=== PATIENT | female | born 1970 | race Caucasian/White ===

== ENCOUNTER 2017-07-28 19:40 | Emergency (ER) | payer BC, OTHER ==
[2017-07-28 19:40] VITALS: BMI 24.7
[2017-07-28 19:45] VITALS: BP 119/80; PULSE 95; RESP 18; TEMP 98; O2SAT 98
--- NOTE | 2017-07-28 20:07 | ED PDOC ---
Arrival/HPI - General Chief Complaint: Cough, Cold, Congestion Time Seen by Provider: 07/28/17 19:40 Historian: Patient - History of Present Illness Narrative History of Present Illness (Text): 07/28/17 20:04 46yo female with PMHx of Diabetes who present with 6days history of nonproductive cough, sore throat, and nasal congestion. States she started having chest and abdominal pain with cough x days. She was seen by her PMD for same symptom and was given Zithromax yesterday. States she have only taken a dose of the antibiotics. Denies fever, chills, nausea, vomiting, diarrhea, constipation, sick contact, travel, any other complaint. Past Medical History - Provider Review Nursing Documentation Reviewed: Yes - Infectious Disease Hx of Infectious Diseases: None - Cardiac Hx Cardiac Disorders: No Hx Atrial Fibrillation: No - Pulmonary Hx Respiratory Disorders: No - Neurological Hx Neurological Disorder: No - HEENT Hx HEENT Disorder: No - Renal Hx Renal Disorder: No - Endocrine/Metabolic Hx Endocrine Disorders: Yes Hx Diabetes Mellitus Type 2: Yes - Hematological/Oncological Hx Blood Disorders: No - Integumentary Hx Dermatological Disorder: No - Musculoskeletal/Rheumatological Hx Musculoskeletal Disorders: No - Gastrointestinal Hx Gastrointestinal Disorders: No - Genitourinary/Gynecological Hx Genitourinary Disorders: No - Psychiatric Hx Psychophysiologic Disorder: No Hx Substance Use: No - Surgical History Hx Section: Yes - Anesthesia Hx Anesthesia: Yes Hx Anesthesia Reactions: No Family/Social History - Physician Review Nursing Documentation Reviewed: Yes Family/Social History: Unknown Family HX Smoking Status: Never Smoked Hx Alcohol Use: No Hx Substance Use: No Allergies/Home Meds Allergies/Adverse Reactions: Allergies amoxicillin Allergy (Verified 07/28/17 19:42) ITCHING Penicillins Allergy (Verified 07/28/17 19:42) ITCHING Home Medications: Home Meds Medication Instructions Recorded Confirmed MetFORMIN [glucoPHAGE] 1,000 mg PO BID 07/28/17 07/28/17 Review of Systems - Physician Review All systems were reviewed & negative as marked: Yes - Review of Systems Constitutional: Normal Eyes: Normal ENT: Sore Throat, Sinus Congestion Respiratory: Cough. absent: SOB, Sputum, Wheezing Cardiovascular: Normal Gastrointestinal: Normal Genitourinary Female: Normal Musculoskeletal: Normal Skin: Normal Neurological: Normal Endocrine: Normal Hemo/Lymphatic: Normal Psychiatric: Normal Physical Exam Vital Signs Reviewed: Yes Vital Signs Temp Pulse Resp BP Pulse Ox 07/28/17 19:42 98.0 F 95 H 18 119/80 98 Temperature: Afebrile Blood Pressure: Normal Pulse: Regular Respiratory Rate: Normal Appearance: Positive for: Well-Appearing, Non-Toxic, Comfortable Pain Distress: None Mental Status: Positive for: Alert and Oriented X 3 - Systems Exam Head: Present: Atraumatic, Normocephalic Pupils: Present: PERRL Extroacular Muscles: Present: EOMI Conjunctiva: Present: Normal Mouth: Present: Moist Mucous Membranes Pharnyx: Present: ERYTHEMA. No: EXUDATE, TONSILS ENLARGED, Peritonsilar Swelling, Uvular Deviation, Muffled/Hoarse Voice, Strider, Soft Palate/Uvular Edema Nose (Internal): Present: Boggy (Boggy b/l) Neck: Present: Normal Range of Motion Respiratory/Chest: Present: Clear to Auscultation, Good Air Exchange. No: Respiratory Distress, Accessory Muscle Use, Wheezes, Decreased Breath Sounds, Rales, Retracting, Rhonchi, Tachypneic Cardiovascular: Present: Regular Rate and Rhythm, Normal S1, S2. No: Murmurs Abdomen: Present: Normal Bowel Sounds. No: Tenderness, Distention, Peritoneal Signs, Rebound, Guarding, McBurney's Point Tender, Rovsing's Sign Present Back: Present: Normal Inspection Upper Extremity: Present: Normal Inspection. No: Cyanosis, Edema Lower Extremity: Present: Normal Inspection. No: Edema Neurological: Present: GCS=15, CN II-XII Intact, Speech Normal Skin: Present: Warm, Dry, Normal Color. No: Rashes Psychiatric: Present: Alert, Oriented x 3, Normal Insight, Normal Concentration Medical Decision Making ED Course and Treatment: 07/28/17 20:36 Pt presented for stated history. she was afebrile and hemodynamically stable in ED. CXR NAD CXR also reviewed by Dr. Freeman Result was DW the patient. She requested blood work for her symptoms and it was explained to the patient that she have URI, which takes few days. She was advised to take her antibiotics as was directed by her PMD, drink plenty of fluid and rest. Advised that her symptoms should be treated symptomatically and if symptoms persist or worsens f/u with her PMD or return to the ED. Rx of Promethazine with codeine, Albuterol inhaler and Ibuprofen was given to the pt. However, according to the RN, pt declined these prescription and refused the medication that was ordered in ED. - RAD Interpretation Radiology Orders: 07/28/17 19:53 CHEST TWO VIEWS (PA/LAT) [RAD] Stat - Medication Orders Current Medication Orders: Discontinued Medications Ibuprofen (Motrin Tab) 600 mg PO STAT STA Stop: 07/28/17 20:20 Last Admin: 07/28/17 20:33 Dose: Not Given Non-Admin Reason: Patient Refused MAR Pain/Vitals Document 07/28/17 20:33 YP (Rec: 07/28/17 20:33 YP [id number]) Pain Reassessment Is This A Pain ReAssessment? Yes Sleep Is patient sleeping during reassessment? No Promethazine HCl (Phenergan Syrup) 6.25 mg PO ONCE STA Stop: 07/28/17 20:20 Last Admin: 07/28/17 20:33 Dose: Not Given Non-Admin Reason: Patient Refused Disposition/Present on Arrival - Present on Arrival Any Indicators Present on Arrival: No History of DVT/PE: No History of Uncontrolled Diabetes: No Urinary Catheter: No History of Decub. Ulcer: No History Surgical Site Infection Following: None - Disposition Have Diagnosis and Disposition been Completed?: Yes Diagnosis: URI (upper respiratory infection) Disposition: HOME/ ROUTINE Disposition Time: 20:30 Patient Plan: Discharge Condition: STABLE Discharge Instructions (ExitCare): Upper Respiratory Infection (ED) Additional Instructions: Follow up with your doctor Drink plenty of fluid and rest Return to ED fo any new or worsening symptoms Prescriptions: Albuterol HFA [Ventolin HFA 90 mcg/actuation (8 g)] 2 puff IH [id number] #1 puff Ibuprofen [Motrin Tab] 600 mg PO Q6 #20 tab Promethazine/Codeine [Phenergan/Codeine Oral Syrup] 118 ml PO Q6 #5 ml Referrals: Selam Duque MD [Primary Care Provider] - Follow up with primary Forms: [email or web address] (Welsh)
[2017-07-28] MEDS ORDERED: Promethazine 6.25 MG/5 ML CUP PO STA (20:19)
--- NOTE | 2017-07-29 08:49 | RAD ---
HISTORY: cough COMPARISON: No prior. TECHNIQUE: Chest PA and lateral FINDINGS: LUNGS: No active pulmonary disease. PLEURA: No significant pleural effusion identified. No pneumothorax apparent. CARDIOVASCULAR: Normal. OSSEOUS STRUCTURES: No significant abnormalities. VISUALIZED UPPER ABDOMEN: Normal. OTHER FINDINGS: None. IMPRESSION: No active disease.
== END 2017-07-28 20:38 | disposition home or self-care (01) ==
LOC: ED 19:40
DX: J06.9 Acute upper respiratory infection, unspecified (principal)

== ENCOUNTER 2018-10-09 07:20 | Observation (INO) | payer BC ==
[2018-10-09] MEDS ORDERED: Sodium Chloride 0.9% 1,000 ML IV STA (07:55)
--- NOTE | 2018-10-09 08:02 | ED PDOC ---
Arrival/HPI - General Time Seen by Provider: 10/09/18 07:46 Historian: Patient - History of Present Illness Narrative History of Present Illness (Text): 10/09/18 07:57 47 year old f with a pmh of a hysterectomy(1 yr ago) and diabetes presents to the emergency department complaining of abd pain w/ Nausea, vomiting, diarrhea and dizziness x3days. Patient recalls that the abd pain with nausea, vomiting, diarrhea came after she ate at a restaurant. She mentioned that this morning she called Dr. Duque (PCP) who advised to present to the emergency department. Patient denies any fevers, chills, headache, chest pain, shortness of breath, dyspnea on exertion, cough, back pain, neck pain, or any other complaint. Time/Duration: < week Symptom Onset: Gradual Symptom Course: Unchanged Activities at Onset: Light Context: Home Associated Symptoms (Text): 10/09/18 08:31 Hysterectomy 1 year ago. Past Medical History - Provider Review Nursing Documentation Reviewed: Yes - Infectious Disease Hx of Infectious Diseases: None - Cardiac Hx Cardiac Disorders: No Hx Atrial Fibrillation: No - Pulmonary Hx Respiratory Disorders: No - Neurological Hx Neurological Disorder: No - HEENT Hx HEENT Disorder: No - Renal Hx Renal Disorder: No - Endocrine/Metabolic Hx Endocrine Disorders: Yes Hx Diabetes Mellitus Type 2: Yes - Hematological/Oncological Hx Blood Disorders: No - Integumentary Hx Dermatological Disorder: No - Musculoskeletal/Rheumatological Hx Musculoskeletal Disorders: No - Gastrointestinal Hx Gastrointestinal Disorders: No - Genitourinary/Gynecological Hx Genitourinary Disorders: No - Psychiatric Hx Psychophysiologic Disorder: No Hx Substance Use: No - Surgical History Hx Section: Yes - Anesthesia Hx Anesthesia: Yes Hx Anesthesia Reactions: No Family/Social History - Physician Review Nursing Documentation Reviewed: Yes Family/Social History: No Known Family HX Smoking Status: Never Smoked Hx Alcohol Use: No Hx Substance Use: No Allergies/Home Meds Allergies/Adverse Reactions: Allergies amoxicillin Allergy (Verified 07/28/17 19:42) ITCHING Penicillins Allergy (Verified 07/28/17 19:42) ITCHING Home Medications: Home Meds Medication Instructions Recorded Confirmed MetFORMIN [glucoPHAGE] 1,000 mg PO BID 07/28/17 07/28/17 Review of Systems - Physician Review All systems were reviewed & negative as marked: Yes - Review of Systems Constitutional: absent: Fatigue, Fevers ENT: absent: Rhinorrhea Respiratory: absent: SOB, Cough, Wheezing Cardiovascular: absent: Chest Pain, Palpitations, Edema, Syncope Gastrointestinal: Abdominal Pain, Diarrhea, Nausea, Vomiting. absent: Constipation Genitourinary Female: absent: Dysuria, Frequency, Hematuria Musculoskeletal: absent: Arthralgias, Back Pain, Myalgias Neurological: Dizziness. absent: Headache, Focal Weakness, Gait Changes Physical Exam Vital Signs Reviewed: Yes Temperature: Afebrile Blood Pressure: Normal Pulse: Regular Respiratory Rate: Normal Appearance: Positive for: Well-Appearing, Non-Toxic, Comfortable Pain Distress: None Mental Status: Positive for: Alert and Oriented X 3 - Systems Exam Head: Present: Atraumatic, Normocephalic Pupils: Present: PERRL Extroacular Muscles: Present: EOMI Conjunctiva: Present: Normal Mouth: Present: Moist Mucous Membranes Pharnyx: No: ERYTHEMA, EXUDATE, TONSILS ENLARGED Neck: Present: Normal Range of Motion Respiratory/Chest: Present: Clear to Auscultation, Good Air Exchange. No: Respiratory Distress, Accessory Muscle Use Cardiovascular: Present: Regular Rate and Rhythm, Normal S1, S2. No: Murmurs Abdomen: No: Tenderness, Distention, Peritoneal Signs, Rebound, Guarding Back: Present: Normal Inspection Upper Extremity: Present: Normal Inspection. No: Cyanosis, Edema Lower Extremity: Present: Normal Inspection. No: Edema Neurological: Present: GCS=15, CN II-XII Intact, Speech Normal, Motor Func G rossly Intact Skin: Present: Warm, Dry, Normal Color. No: Rashes Psychiatric: Present: Alert, Oriented x 3, Normal Insight, Normal Concentration Medical Decision Making ED Course and Treatment: 10/09/18 08:04 Impression: 47 year old f presents to the emergency department complaining of abd pain w/ Nausea, vomiting, diarrhea and dizziness x3days Plan: --Labs --Protonix inj --Saline IV --Zofran inj -- Reassess and disposition Prior Visits: Notes and results from previous visits were reviewed. Progress Notes: 10/09/18 09:28 Markedly elevated lipase. Ultrasound has been ordered. 10/09/18 11:16 Symptoms are markedly improved. 10/09/18 12:00 Seen and examined by , who requests consultation with GI Dr Maza, and will place on regular observation. - RAD Interpretation Radiology Orders: Ultrasound of the abdomen is read by the radiologist shows a fatty liver. Otherwise unremarkable. Stamp Presser: Radiologist - Medication Orders Current Medication Orders: Sodium Chloride (Sodium Chloride 0.9%) 1,000 mls @ 1,000 mls/hr IV .Q1H STA Stop: 10/09/18 08:54 Ondansetron HCl (Zofran Inj) 4 mg IVP STAT STA Stop: 10/09/18 07:56 Pantoprazole Sodium (Protonix Inj) 40 mg IVP STAT STA Stop: 10/09/18 07:56 - PA / MIDDLEWARE CONSULTANT / Resident Statement MD/DO has reviewed & agrees with the documentation as recorded. - Scribe Statement The provider has reviewed the documentation as recorded by the Contrerasibangela Green All medical record entries made by the Contrerasibangela were at my direction and personally dictated by me. I have reviewed the chart and agree that the record accurately reflects my personal performance of the history, physical exam, medical decision making, and the department course for this patient. I have also personally directed, reviewed, and agree with the discharge instructions and disposition. Disposition/Present on Arrival - Present on Arrival Any Indicators Present on Arrival: No History of DVT/PE: No History of Uncontrolled Diabetes: No Urinary Catheter: No History of Decub. Ulcer: No History Surgical Site Infection Following: None - Disposition Have Diagnosis and Disposition been Completed?: Yes Diagnosis: Hyperglycemia, Pancreatitis, Nausea vomiting and diarrhea, Abdominal pain Disposition: HOSPITALIZED Disposition Time: 12:02 Patient Plan: Observation Condition: IMPROVED Referrals: Selam Duque MD [Primary Care Provider] - Follow up with primary
[2018-10-09 09:08] LABS: BASO # 0.02 K/mm3 (0.0-2.0); BASO % 0.2 % (0.0-3.0); EOS # 0.1 (0.0-0.7); EOS % 0.6 % (1.5-5.0); HEMOGLOBIN 13.8 g/dL (12.0-16.0); LYMPH # 1.7 (1.2-3.4); LYMPH % 16.5 % (22.0-35.0); MEAN CELL VOLUME 78.5 fl (80.0-105.0); MEAN CORPUSCULAR HGB CONC 33.1 g/dl (31.0-37.0); MEAN PLATELET VOLUME 10.3 fl (7.0-11.0); MONO # 0.6 (0.1-0.6); MONO % 6.1 % (1.0-6.0); RBC 5.31 10^6/uL (3.5-6.1); RED CELL DISTRIBUTION WIDTH 12.9 % (11.5-14.5); WHITE BLOOD COUNT 10.2 10^3/uL (4.5-11.0)
[2018-10-09 09:27] LABS: ALB/GLOB RATIO 1.3 (1.1-1.8); ALBUMIN 4.1 g/dL (3.0-4.8); ALT/SGPT 13 U/L (7-56); AST/SGOT 24 U/L (14-36); BLOOD UREA NITROGEN 13 mg/dL (7-21); CALCIUM 9.7 mg/dL (8.4-10.5); GFR NON-AFRICAN AMERICAN > 60; LIPASE 667 U/L (23-300)
--- NOTE | 2018-10-09 11:33 | US ---
Date of service: 10/09/2018 HISTORY: elevated lipase COMPARISON: None. TECHNIQUE: Sonographic evaluation of the abdomen. FINDINGS: LIVER: Liver is enlarged measuring 20 cm in CC dimension.. Liver exhibits echogenic parenchyma likely due to fatty infiltration however other infiltrative hepatocellular disease process not excluded. No mass. No intrahepatic bile duct dilatation. GALLBLADDER: Unremarkable. No gallstones. COMMON BILE DUCT: Measures 6.0 mm. No stones. No dilatation. PANCREAS: Unremarkable as visualized. No mass. No ductal dilatation. RIGHT KIDNEY: Measures 11.8 x 4.9 x 5.0cm. Normal echogenicity. No calculus, mass, or hydronephrosis. LEFT KIDNEY: Measures 11.7 x 5.4 x 5.6cm. Normal echogenicity. No calculus, mass, or hydronephrosis. SPLEEN: Normal in size and contour. No mass. AORTA: No aneurysmal dilatation. IVC: Unremarkable. OTHER FINDINGS: None. IMPRESSION: Hepatomegaly with suspected fatty infiltration however other infiltrative hepatocellular disease process not excluded.
--- NOTE | 2018-10-09 13:56 | CP.PCM.CON ---
<Rajesh Krishnamurthy - Last Filed: 10/09/18 17:06> History of Present Illness - History of Present Illness History of Present Illness: Rajesh Krishnamurthy PGY2 GI Consult Note for Dr. Maza Reason for consult: pancreatitis Ms. Gomez is a 47 year old female with a PMH of DM2 (diagnosed at young age, non-insulin dependent) and GERD who presents with nausea/vomiting for several days as well as diarrhea x2 days. GI consulted for pancreatitis. The patient states that these symptoms have been occurring for more than 2 years now, and are intermittent in nature. She denies any sick contacts, fevers/chills, recent travel. She denies any blood loss in the vomitus or stools. She denies any weight loss, hx of cancers or prior upper/lower endoscopies. She described abdominal pain that is epigastric in nature and radiating to her neck as well as to the back. She states that her last A1C was about 9.1. 12-pt ROS was reviewed and is otherwise unremarkable. PMD: Dr. 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[employer]) FHx: DM2 and Heart conditions; no cancers (GI or otherwise) Review of Systems - Review of Systems All systems: reviewed and no additional remarkable complaints except (as per HPI) Past Patient History - Infectious Disease Hx of Infectious Diseases: None - Past Medical History & Family History Past Medical History?: Yes Past Family History: Reviewed and not pertinent - Past Social History Smoking Status: Never Smoked Alcohol: None Drugs: Denies Home Situation {Lives}: With Family - CARDIAC Hx Cardiac Disorders: No Hx Atrial Fibrillation: No - PULMONARY Hx Respiratory Disorders: No - NEUROLOGICAL Hx Neurological Disorder: No - HEENT Hx HEENT Problems: No - RENAL Hx Chronic Kidney Disease: No - ENDOCRINE/METABOLIC Hx Endocrine Disorders: Yes Hx Diabetes Mellitus Type 2: Yes - HEMATOLOGICAL/ONCOLOGICAL Hx Blood Disorders: No - INTEGUMENTARY Hx Dermatological Problems: No - MUSCULOSKELETAL/RHEUMATOLOGICAL Hx Musculoskeletal Disorders: No - GASTROINTESTINAL Hx Gastrointestinal Disorders: No - GENITOURINARY/GYNECOLOGICAL Hx Genitourinary Disorders: No - PSYCHIATRIC Hx Psychophysiologic Disorder: No Hx Substance Use: No - SURGICAL HISTORY Hx Section: Yes - ANESTHESIA Hx Anesthesia: Yes Hx Anesthesia Reactions: No Meds Allergies/Adverse Reactions: Allergies Allergy/AdvReac Type Severity Reaction Status Date / Time amoxicillin Allergy ITCHING Verified 10/09/18 16:42 Penicillins Allergy ITCHING Verified 10/09/18 16:42 - Medications Medications: Current Medications Sodium Chloride (Sodium Chloride 0.9%) 1,000 mls @ 100 mls/hr IV .Q10H MALLORY Ondansetron HCl (Zofran Inj) 4 mg IVP Q4H PRN PRN Reason: Nausea/Vomiting Pantoprazole Sodium (Protonix Ec Tab) 40 mg PO ACB MALLORY Physical Exam - Constitutional Appears: Well, Non-toxic, Toxic - Head Exam Head Exam: ATRAUMATIC, NORMAL INSPECTION, NORMOCEPHALIC - Eye Exam Eye Exam: EOMI, Normal appearance, PERRL Pupil Exam: NORMAL ACCOMODATION, PERRL - ENT Exam ENT Exam: Mucous Membranes Moist, Normal Exam - Neck Exam Neck exam: Positive for: Full Rom, Normal Inspection. Negative for: Thyromegaly - Respiratory Exam Respiratory Exam: Clear to Auscultation Bilateral, NORMAL BREATHING PATTERN - Cardiovascular Exam Cardiovascular Exam: REGULAR RHYTHM, +S1, +S2 - GI/Abdominal Exam GI & Abdominal Exam: Normal Bowel Sounds, Soft. absent: Distended, Tenderness - Extremities Exam Extremities exam: Positive for: full ROM, normal inspection. Negative for: pedal edema - Back Exam Back exam: FULL ROM, NORMAL INSPECTION - Neurological Exam Neurological exam: Alert, Normal Gait, Oriented x3, Reflexes Normal - Skin Skin Exam: Dry, Intact, Normal Color, Warm Results - Vital Signs Recent Vital Signs: Last Vital Signs Temp 98.2 F 10/09/18 08:05 Pulse 72 10/09/18 08:05 Resp 16 10/09/18 08:05 BP 134/82 10/09/18 08:05 Pulse Ox 98 10/09/18 08:05 - Labs Result Diagrams: 10/09/18 08:30 10/09/18 08:30 Labs: Laboratory Results - last 24 hr 10/09/18 10/09/18 08:30 08:30 WBC 10.2 RBC 5.31 Hgb 13.8 Hct 41.7 MCV 78.5 L MCH 26.0 MCHC 33.1 RDW 12.9 Plt Count 273 MPV 10.3 Neut % (Auto) 76.6 H Lymph % (Auto) 16.5 L [place] % (Auto) 6.1 H Eos % (Auto) 0.6 L Baso % (Auto) 0.2 Lymph # (Auto) 1.7 [place] # (Auto) 0.6 Eos # (Auto) 0.1 Baso # (Auto) 0.02 Absolute Neuts (auto) 7.78 H Sodium 137 Potassium 4.4 Chloride 103 Carbon Dioxide 19 L Anion Gap 19 BUN 13 Creatinine 0.5 L Est GFR ( Amer) > 60 Est GFR (Non-Af Amer) > 60 Random Glucose 300 H Calcium 9.7 Magnesium 1.7 Total Bilirubin 0.3 AST 24 ALT 13 Alkaline Phosphatase 102 Total Protein 7.4 Albumin 4.1 Globulin 3.2 Albumin/Globulin Ratio 1.3 Lipase 667 H Assessment & Plan - Assessment and Plan (Free Text) Assessment: 47 year old female with a PMH of DM2 (diagnosed at young age, non-insulin dependent) and GERD who presents with nausea/vomiting for several days as well as diarrhea x2 days. These symptoms seem chronic in nature but could be acutely exacerbated due to an acute event. 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 Chronic symptoms may indicate an underlying inflammatory or functional etiology. Pancreatitis is less likely as etiology given mild elevation of Lipase and mild symptoms; elevation may actually be reactive or due to medication (Januvia). Plan: - NPO - will consent patient for upper endoscopy to further evaluate underlying pathology - will check celiac panel - will check A1c and TSH - will recheck lipase tomorrow AM - will check iron panel and anemia w/u - if symptoms persist, would recommend pancreatic protocol CT - hold januvia at this time - further recs per Dr. Maza Case was reviewed and discussed with attending, Dr. Maza <Leeanna Maza V - Last Filed: 10/09/18 17:51> Meds - Medications Medications: Current Medications Hydromorphone HCl (Dilaudid) 0.5 mg IVP Q4H PRN PRN Reason: Pain, Mild (1-3) Sodium Chloride (Sodium Chloride 0.9%) 1,000 mls @ 100 mls/hr IV .Q10H MALLORY Insulin Human Regular (Humulin R Low) 0 units SC ACHS MALLORY; Protocol Ondansetron HCl (Zofran Inj) 4 mg IVP Q6 PRN PRN Reason: Nausea/Vomiting Pantoprazole Sodium (Protonix Inj) 40 mg IVP DAILY MALLORY Last Admin: 10/09/18 16:11 Dose: 40 mg Results - Vital Signs Recent Vital Signs: Last Vital Signs Temp 98.2 F 10/09/18 17:11 Pulse 76 10/09/18 17:11 Resp 14 10/09/18 17:11 BP 134/72 10/09/18 17:11 Pulse Ox 99 10/09/18 17:11 - Labs Result Diagrams: 10/09/18 08:30 10/09/18 08:30 Labs: Laboratory Results - last 24 hr 10/09/18 10/09/18 10/09/18 08:30 08:30 13:52 WBC 10.2 RBC 5.31 Hgb 13.8 Hct 41.7 MCV 78.5 L MCH 26.0 MCHC 33.1 RDW 12.9 Plt Count 273 MPV 10.3 Neut % (Auto) 76.6 H Lymph % (Auto) 16.5 L [place] % (Auto) 6.1 H Eos % (Auto) 0.6 L Baso % (Auto) 0.2 Lymph # (Auto) 1.7 [place] # (Auto) 0.6 Eos # (Auto) 0.1 Baso # (Auto) 0.02 Absolute Neuts (auto) 7.78 H Sodium 137 Potassium 4.4 Chloride 103 Carbon Dioxide 19 L Anion Gap 19 BUN 13 Creatinine 0.5 L Est GFR ( Amer) > 60 Est GFR (Non-Af Amer) > 60 POC Glucose (mg/dL) Random Glucose 300 H Calcium 9.7 Magnesium 1.7 Iron TIBC % Saturation Total Bilirubin 0.3 AST 24 ALT 13 Alkaline Phosphatase 102 Total Protein 7.4 Albumin 4.1 Globulin 3.2 Albumin/Globulin Ratio 1.3 Triglycerides Cholesterol LDL Cholesterol Direct HDL Cholesterol Amylase Lipase 667 H TSH 3rd Generation 1.75 10/09/18 10/09/18 10/09/18 16:34 17:00 17:00 WBC RBC Hgb Hct MCV MCH MCHC RDW Plt Count MPV Neut % (Auto) Lymph % (Auto) [place] % (Auto) Eos % (Auto) Baso % (Auto) Lymph # (Auto) [place] # (Auto) Eos # (Auto) Baso # (Auto) Absolute Neuts (auto) Sodium Potassium Chloride Carbon Dioxide Anion Gap BUN Creatinine Est GFR ( Amer) Est GFR (Non-Af Amer) POC Glucose (mg/dL) 104 Random Glucose Calcium Magnesium Iron 71 TIBC 331 % Saturation 21 Total Bilirubin AST ALT Alkaline Phosphatase Total Protein Albumin Globulin Albumin/Globulin Ratio Triglycerides 163 H Cholesterol 182 LDL Cholesterol Direct 111 HDL Cholesterol 37 Amylase 87 Lipase 142 TSH 3rd Generation Attending/Attestation - Attestation I have personally seen and examined this patient.: Yes I have fully participated in the care of the patient.: Yes I have reviewed all pertinent clinical information: Yes Notes (Text): This is an addendum to the consultation report dictated by the medical transcriber. The patient was seen and evaluated earlier. She was admitted with the diarrhea vomiting and abdominal pain. She has mildly elevated lipase level. Sonogram did not reveal any gallstone. CBD normal. The differential diagnosis would include gastroenteritis, drug-induced pancreatitis should also be considered in the differential diagnosis patient is on Januvia. She has complaints of abdominal discomfort on and off for nearly a year now. She has poorly controlled diabetes. Gastroparesis should be a differential diagnosis in view of her present symptoms of nausea vomiting and postprandial abdominal bloating and his dyspeptic symptoms. Patient would benefit from upper GI endoscopy to further evaluate. Patient never had an EGD done in the past. We will also consider biopsy of the duodenum to rule out any celiac disease Patient also has a microcytic anemia. Will order for iron studies to rule out iron deficiency. If iron studies normal ,we would consider hemoglobin electrophoresis to rule out thalassemia. Discussed with the patient at length risk benefits and alternatives explained informed consent obtained for upper GI endoscopy 10/09/18 17:46
[2018-10-09] MEDS ORDERED: Sodium Chloride 0.9% 1,000 ML IV SCH ×2 (14:00→18:00)
[2018-10-09] MEDS ORDERED: HYDROmorphone 0.5 mg/0.5 ml ISec IVP PRN (15:05)
[2018-10-09] MEDS ORDERED: Propofol 10 mg/ml Inj (20 ML) ONE (17:09)
[2018-10-09] MEDS ORDERED: Lidocaine PF 2% (5 ml) Inj (For Cardiac Arrhy) ONE (17:09)
[2018-10-09 17:18] LABS: AMYLASE 87 U/L (35-125); HDL CHOLESTEROL 37 mg/dL (29-60); LIPASE 142 U/L (23-300)
[2018-10-09 17:22] LABS: IRON 71 ug/dL (45-180)
[2018-10-09 17:29] LABS: LDL CHOLESTEROL 111 mg/dL (0-129)
[2018-10-09 17:33] LABS: % IRON SATURATION 21 % (20-55); TOTAL IRON BINDING CAPACITY 331 ug/dL (265-497)
[2018-10-09 17:55] VITALS: BMI 21.6
[2018-10-09] MEDS ORDERED: Pneumococcal 23-Valent Vaccine IM ONE (17:55)
[2018-10-09] MEDS ORDERED: Influenza Vaccine 60 mcg/0.5 mL SYR (4YR UP) IM ONE (17:55)
[2018-10-09] MEDS: Insulin Reg-LOW-Coverage SC SCH ×2 (19:37→21:22)
[2018-10-10] MEDS ORDERED: Pantoprazole 40 mg EC Tab PO SCH ×2 (07:15→07:30)
[2018-10-10 07:16] LABS: HEMOGLOBIN 12.8 g/dL (12.0-16.0); MEAN CELL VOLUME 78.2 fl (80.0-105.0); MEAN CORPUSCULAR HEMOGLOBIN 26.1 pg (25.0-35.0); MEAN CORPUSCULAR HGB CONC 33.4 g/dl (31.0-37.0); MEAN PLATELET VOLUME 9.8 fl (7.0-11.0); RBC 4.9 10^6/uL (3.5-6.1); RED CELL DISTRIBUTION WIDTH 12.9 % (11.5-14.5); WHITE BLOOD COUNT 10.9 10^3/uL (4.5-11.0)
[2018-10-10 07:43] LABS: BLOOD UREA NITROGEN 10 mg/dL (7-21); CALCIUM 8.2 mg/dL (8.4-10.5); GFR NON-AFRICAN AMERICAN > 60; LIPASE 182 U/L (23-300)
--- NOTE | 2018-10-10 07:55 | CP.PCM.PN ---
<Rajesh Krishnamurthy - Last Filed: 10/10/18 11:24> Subjective - Date & Time of Evaluation Date of Evaluation: 10/10/18 Time of Evaluation: 07:21 - Subjective Subjective: Rajesh Krishnamurthy PGY2 Progress Note for Dr. Maza Patient was seen and examined at bedside. She is tolerating her diet, and has not had episodes of nausea/vomiting or diarrhea since admission. No acute overnight events noted. Objective - Vital Signs/Intake and Output Vital Signs (last 24 hours): Temp Pulse Resp BP Pulse Ox 98.2 F 71 18 106/68 99 10/09/18 18:15 10/09/18 18:15 10/09/18 18:15 10/09/18 18:15 10/09/18 18:15 Intake and Output: 10/10/18 10/10/18 06:59 18:59 Intake Total 540 Balance 540 - Medications Medications: Current Medications Hydromorphone HCl (Dilaudid) 0.5 mg IVP Q4H PRN PRN Reason: Pain, Mild (1-3) Sodium Chloride (Sodium Chloride 0.9%) 1,000 mls @ 100 mls/hr IV .Q10H MALLORY Insulin Human Regular (Humulin R Low) 0 units SC ACHS MALLORY; Protocol Last Admin: 10/09/18 21:22 Dose: Not Given Ondansetron HCl (Zofran Inj) 4 mg IVP Q6 PRN PRN Reason: Nausea/Vomiting Pantoprazole Sodium (Protonix Ec Tab) 40 mg PO 0600 MALLORY - Labs Labs: 10/10/18 06:00 10/10/18 06:00 - Constitutional Appears: Well, Non-toxic, No Acute Distress - Head Exam Head Exam: ATRAUMATIC, NORMAL INSPECTION, NORMOCEPHALIC - Eye Exam Eye Exam: EOMI, Normal appearance, PERRL Pupil Exam: NORMAL ACCOMODATION, PERRL - ENT Exam ENT Exam: Mucous Membranes Moist, Normal Exam - Neck Exam Neck Exam: Full ROM, Normal Inspection. absent: Lymphadenopathy - Respiratory Exam Respiratory Exam: Clear to Ausculation Bilateral, NORMAL BREATHING PATTERN. absent: Respiratory Distress - Cardiovascular Exam Cardiovascular Exam: RRR, +S1, +S2. absent: Murmur - GI/Abdominal Exam GI & Abdominal Exam: Soft, Normal Bowel Sounds. absent: Distended, Tenderness - Extremities Exam Extremities Exam: Full ROM, Normal Capillary Refill, Normal Inspection. absent: Joint Swelling, Pedal Edema - Back Exam Back Exam: Full ROM, NORMAL INSPECTION - Neurological Exam Neurological Exam: Alert, Awake, Oriented x3 - Skin Skin Exam: Dry, Intact, Normal Color, Warm Assessment and Plan - Assessment and Plan (Free Text) Assessment: 47 year old female with a PMH of DM2 (diagnosed at young age, non-insulin dependent) and GERD who presents with nausea/vomiting for several days as well as diarrhea x2 days. These symptoms seem chronic in nature but could be acutely exacerbated due to an acute event. 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 Chronic symptoms may indicate an underlying functional etiology (ie gastroparesis given uncontrolled DM2) or inflammatory (awaiting path from EGD). Elevated lipase may be due to medication side-effect but will need to rule out organic pancreatic etiology due to underlying autoimmune pathology. Plan: - diet advanced to soft low-fiber low-fat diet (consistent carb) and tolerated well; recommend to continue this diet regimen as outpatient - s/p EGD showing short segment Vaca's esophagus, gastritis and gastroparesis; bx sent awaiting path - will check celiac panel - pancreatic protocol CT ordered - hold januvia at this time; would recommend against Januvia due to side-effects - continue PPI once daily for 6 weeks - follow up as outpatient with Dr. Maza in office within 1-2 weeks - further recs per Dr. Maza Case was reviewed and discussed with attending, Dr. Maza <Leeanna Maza V - Last Filed: 10/10/18 21:59> Objective - Vital Signs/Intake and Output Vital Signs (last 24 hours): Temp Pulse Resp BP Pulse Ox 98.2 F 86 20 126/84 100 10/10/18 16:27 10/10/18 16:27 10/10/18 16:27 10/10/18 16:27 10/10/18 16:27 Intake and Output: 10/10/18 10/11/18 18:59 06:59 Intake Total 1200 Balance 1200 - Labs Labs: 10/10/18 06:00 10/10/18 06:00 Attending/Attestation - Attestation I have personally seen and examined this patient.: Yes I have fully participated in the care of the patient.: Yes I have reviewed all pertinent clinical information, including history, physical exam and plan: Yes Notes (Text): This patient was seen and evaluated with the medical scheduler earlier today. This is an addendum to the GI progress report dictated by the medical scheduler Patient had a CT of the abdomen and pelvis with the pancreatic protocol which w as reviewed and pancreas was normal Patient did have mildly elevated lipase level. Patient has been on Januvia Status post EGD As the gastroparesis probably due to poorly controlled diabetes mellitus Plan 1. Avoid Januvia 2. Soft diet or pured diet or eat slowly to soft diet 3. Advised the patient follow-up in our office post discharge Thank you Dr. Duque for allowing us to participate in the care of the patient 10/10/18 21:58
--- NOTE | 2018-10-10 08:16 | HP ---
DATE OF EXAM: 10/09/2018 The patient is seen and examined at the bedside on 10/09/2018. CHIEF COMPLAINT: Abdominal pain and nauseousness. HISTORY OF PRESENT ILLNESS: The patient is a 47-year-old female with past medical history of hysterectomy one year ago, diabetes mellitus, noncompliant with medications, came to the hospital emergency room with nausea, vomiting, diarrhea, dizziness, abdominal pain from 3 days. The patient recalls that the abdominal pain with nausea, vomiting and diarrhea came after she ate in one restaurant. She mentioned that this morning she actually called my service about her condition, I told her to go to [facility]. The patient denies fevers, chills or headache. No chest pain. No shortness of breath. No hematuria. No hematochezia. No back pain. PAST MEDICAL HISTORY: Diabetes mellitus type 2 and section. FAMILY HISTORY: Father and mother noncontributory. HABITS: Never smoked. No drugs or ethanol. ALLERGIES: THE PATIENT IS ALLERGIC TO PENICILLIN AND AMOXICILLIN. HOME MEDICATIONS: Metformin. REVIEW OF SYSTEMS: The patient was seen and examined at the bedside in the ER. Still having abdominal pain, but got better with medication. Nauseousness is a little bit better. Looking comfortable. No fever. No chills. No hematuria. No hematochezia. No headache or dizziness. No chest pain. No palpitation. PHYSICAL EXAMINATION: VITAL SIGNS: Temperature 98.2, pulse 18, blood pressure 145/80, pulse oximetry 100% and respiratory rate 16 HEENT: Head is normocephalic and atraumatic. Eyes; PERRLA. Extraocular muscles intact. Conjunctivae are clear. Nose patent. Mucous membrane moist. NECK: Supple. No carotid bruits. No JVD. No thyromegaly. CHEST: Bilateral symmetrical. HEART: S1 and S2, positive. LUNGS: Clear to auscultation. ABDOMEN: Soft. Tender in the left upper quadrant. NEUROLOGIC: The patient is awake and alert. Follows simple commands. Oriented x3. EXTREMITIES: No edema. No cyanosis. Moving all four extremities. LABORATORY DATA: White blood cell 10.2, hemoglobin 13.8, hematocrit 41.7 and platelet 273. Sodium 137, potassium 4.4, BUN 30, creatinine 0.5, random glucose more than 300 and lipase 667. ASSESSMENT AND PLAN: The patient is a 47-year-old lady with history of diabetes mellitus type 2, not very well controlled came with abdominal pain, nausea, vomiting and diarrhea. The CT scan of the abdomen; hepatomegaly with suspected fatty infiltration; however, the other infiltrates of hepatocellular disease process are not excluded. Gastroenterology consult called. Seen by Dr. Rajesh Szymanski. History of gastroesophageal reflux disease, dyspepsia. Came with abdominal pain, hyperglycemia, Aranesp given. Consult called with Gastroenterology. Discussion with Dr. Corea, ER physician. Discussion done with also. The patient is n.p.o. put on sliding scale. Repeat labs. We will follow up. Selam Duque MD
[2018-10-10 08:34] VITALS: RESP 20
[2018-10-10] MEDS: Insulin Reg-LOW-Coverage SC SCH ×3 (08:37→17:20)
[2018-10-10] MEDS ORDERED: Barium Sulfate Susp 2.1% w/v, 2.0% w/w 450 mL Bottle PO ONE (10:35)
[2018-10-10 13:43] LABS: FOLATE > 20.0 ng/mL
--- NOTE | 2018-10-10 16:27 | CT ---
Date of service: 10/10/2018 PROCEDURE: CT Abdomen and Pelvis with contrast HISTORY: persistent abdominal pain w/ elevated lipase COMPARISON: None. TECHNIQUE: Contrast dose: 150 cc of Omni 350 Radiation dose: Total exam DLP = 832.9 mGy-cm. This CT exam was performed using one or more of the following dose reduction techniques: Automated exposure control, adjustment of the mA and/or kV according to patient size, and/or use of iterative reconstruction technique. FINDINGS: LOWER THORAX: Unremarkable. LIVER: Unremarkable. No gross lesion or ductal dilatation. GALLBLADDER AND BILE DUCTS: Unremarkable. PANCREAS: Unremarkable. No gross lesion or ductal dilatation. SPLEEN: Unremarkable. ADRENALS: Unremarkable. No mass. KIDNEYS AND URETERS: Unremarkable. No hydronephrosis. No solid mass. VASCULATURE: Unremarkable. No aortic aneurysm. No aortic atherosclerotic calcification or mural plaque present. BOWEL: Unremarkable. No obstruction. No gross mural thickening. APPENDIX: Normal appendix. PERITONEUM: Unremarkable. No free fluid. No free air. LYMPH NODES: Unremarkable. No enlarged lymph nodes. BLADDER: Unremarkable. REPRODUCTIVE: Hysterectomy BONES: No acute fracture. OTHER FINDINGS: None. IMPRESSION: Unremarkable contrast enhanced CT of the abdomen and pelvis.
[2018-10-10 16:28] VITALS: BP 126/84; PULSE 86; TEMP 98.2; O2SAT 100
--- NOTE | 2018-10-10 20:28 | PN ---
DATE: 10/10/2018 The patient is seen and examined at the bedside on 10/10/2018. SUBJECTIVE: The patient is looking comfortable. No more abdominal pain. No nausea or vomiting. Drinking contrast material for CAT scan of the abdomen, attention to pancreas. Seen by mandrel cleaner. Underwent upper endoscopy. PHYSICAL EXAMINATION VITAL SIGNS: Temperature 98.2, pulse 86, blood pressure 126/84, and respiratory rate 20. HEENT: Head; normocephalic and atraumatic. Eyes; PERRLA. Extraocular muscles intact. Conjunctivae clear. Nose patent. Mucous membranes moist. NECK: Supple. No carotid bruits. No JVD or thyromegaly. CHEST: Bilaterally symmetrical. HEART: S1 and S2 positive. LUNGS: Clear to auscultation. ABDOMEN: Soft. Bowel sounds present. No organomegaly. EXTREMITIES: No edema. No cyanosis. NEUROLOGIC: The patient is awake and alert,moving all four extremities. No focal deficits. MEDICATIONS: Dilaudid, Protonix, normal saline, Zofran. LABORATORY DATA: White blood cell is 10.9, hemoglobin 12.8, hematocrit 38.3, and platelets 279. Sodium 138, potassium 3.7, BUN 10, creatinine 0.7, glucose of 158, hemoglobin A1c is 9, and calcium 8.2. ASSESSMENT AND PLAN: Patricia Ricci is a 47-year-old lady with hypertriglyceridemia, uncontrolled diabetes mellitus, hypocalcemia, came with intractable abdominal pain, nausea, vomiting, went for upper endoscopy by Dr. Maza, an esophagogastroduodenoscopy with biopsy. It showed an eosinophilic esophagitis, severe gastroparesis, rule out celiac disease, rule out gastritis, esophagitis, rule out Vaca's esophagus. Went for CAT scan of pancreas, results are pending. Took food, tolerated. Discussion done with Dr. Maza and the patient's . Gastrointestinal and deep venous thrombosis prophylaxis, waiting for pancreatic results. We will follow up. Selam Duque MD
== END 2018-10-10 19:13 | disposition home or self-care (01) ==
LOC: ED 07:20 → ERH 11:59 → 3RNO 14:17
PROVIDERS: ADMIT Internal Medicine; ATTEND Internal Medicine
DX: E11.43 Type 2 diabetes mellitus with diabetic autonomic (poly)neuropathy (principal); K31.84 Gastroparesis; E11.65 Type 2 diabetes mellitus with hyperglycemia; K22.70 Barrett's esophagus without dysplasia; K21.9 Gastro-esophageal reflux disease without esophagitis; K29.70 Gastritis, unspecified, without bleeding; B96.81 Helicobacter pylori [H. pylori] as the cause of diseases classified elsewhere; D50.9 Iron deficiency anemia, unspecified; K20.0 Eosinophilic esophagitis; E78.1 Pure hyperglyceridemia; E83.51 Hypocalcemia; Z91.14 Patient's other noncompliance with medication regimen
CPT/HCPCS: 36415; 43239; 74177; 76700; 80048; 80053; 80061; 81025; 82150; 82607; 82746; 82784; 82948; 83036; 83516; 83540; 83550; 83690; 83735; 84443; 85025; 85027; 85044; 88305; 88312; 88342; 96374; 96375; 99284; C9113; G0378; J2405; J2704; J2765; J7030; J7040; Q9967